=== PATIENT | female | born 1985 | race Caucasian/White ===

== ENCOUNTER 2016-10-11 17:05 | Emergency (ER) | payer OTHER ==
[~2016-10-11] VITALS: Ht 149.9 cm; Wt 64.4 kg
[~2016-10-11 17:05] MED LIST: DIAZEPAM2 M1 PO; MOTRIN800 MG PO; NEURONTIN300 MG PO; OXCARBAZEPINE300 MG PO; SPRINTEC 28 DA1 EACH PO; STRATTERA10 MG PO; STRATTERA25 MG PO; TOPIRAMATE15 MG PO; TOPIRAMATE25 MG PO; TOPIRAMATE50 MG PO; TRAZODONE HCL50 MG PO; VALIUM2 M1 PO; VENLAFAXINE HYD75 M1 PO; ZOFRAN ODT4 MG PO
[2016-10-11] MEDS ORDERED: PANTOPRAZOLE SO40 M1 PO (19:01)
--- NOTE | 2016-10-11 19:28 | ED GI/GU/ABDOMINAL COMPLAINT ---
History of Present Illness General Chief Complaint: Female Urogenital Problems Stated Complaint: RACKET BALL STUCK UP VAGINA Source: patient Exam Limitations: no limitations Vital Signs & Intake/Output Vital Signs & Intake/Output Vital Signs Date Time Temp Pulse Resp B/P B/P Pulse O2 O2 Flow FiO2 Mean Ox Delivery Rate 10/11 2014 98.1 95 16 108/63 98 10/11 1719 98.5 102 15 110/75 96 Room Air Room Air ED Intake and Output 10/12 0000 10/11 1200 Intake Total Output Total Balance Patient 142 lb Weight Weight Reported by Patient Measurement Method Allergies Coded Allergies: chlorpromazine (From THORAZINE) (jumped out window 10/11/16) diphenhydramine (From BENADRYL ALLERGY) (ADDICTION 10/11/16) lorazepam (ITS CALLED ADDICITION 10/11/16) Reconcile Medications Norgestimate-Ethinyl Estradiol (Sprintec 28 Day Tablet) 0.25 MG-35 MCG TABLET 1 TAB PO DAILY BC (Reported) Pantoprazole Sodium 40 MG TABLET.DR 1 TAB PO DAILY GERD (Reported) Triage Note: PT REPORTS SHE HAS A RACKET BALL STUCK IN HER VAGINA. DENIES BLEEDING OR DISCHARGE. REPORTS PELVIC PAIN. 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 ALSO REPORTS ITCHINESS AND BURNING. Triage Nurses Notes Reviewed? yes ? n Is pt currently ? No HPI: Ms. Colon is a 31 yo f w/ PMH of depression and genital herpes presenting to the emergency department for vaginal pain. Patient states she was having consensual sex with her boyfriend when they decided to use a rubber ball and inserted within her vagina. She states this was consensual and not intended to be harmful. Ball got lodged within the vagina and they were unable to remove it. Patient states is been there for approximately 2 hours. Patient denies any dysuria, increased urinary frequency, vaginal discharge, fevers, chills, bowel pain, nausea vomiting or diarrhea. (HÉCTOR PACKER,VIVIAN) Past History Travel History Traveled to [place] past 21 day No Medical History Any Pertinent Medical History? 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 No (VIVIAN ANAYA MD) Review of Systems Review of Systems Constitutional: Reports: see HPI. Comments Review of systems: See HPI. All other systems negative. Constitutional: No chills, fever or weight loss HEENT: No visual changes, no sore throat, no congestion Cardiovascular: No chest pain, palpitations, orthopnea or ankle swelling Skin: no jaundice, no rashes Respiratory: No dyspnea, cough, sputum or hemoptysis GI: No nausea, vomiting or abdominal pain. No diarrhea. : No dysuria No hematuria Musculoskeletal: no back pain, no neck pain Neurologic: No numbness no confusion Psych: No anxiety or depression,. Heme/endocrine: No bruising, no bleeding, no polyuria or polydipsia Immunology: No splenectomy or history of AIDS (VIVIAN ANAYA MD) Physical Exam Physical Exam General Appearance: well developed/nourished, no apparent distress, alert, awake , comfortable Head: atraumatic, normal appearance Eyes: Bilateral: normal appearance, PERRL, EOMI, normal inspection. Ears, Nose, Throat, Mouth: hearing grossly normal Neck: normal inspection, supple, full range of motion Respiratory: normal breath sounds, no respiratory distress Cardiovascular: regular rate/rhythm Gastrointestinal: normal bowel sounds, soft, non-tender Rectal: deferred Pelvic: approximately 5-6 cm blue-green rubber ball seen within the vaginal canal Back: normal inspection, normal range of motion Extremities: normal range of motion Neurologic/Psych: no motor/sensory deficits, awake, alert, oriented x 3 Skin: intact, normal color, warm/dry Core Measures ACS in differential dx? No Severe Sepsis Present: No Septic Shock Present: No (VIVIAN ANAYA MD) Progress Differential Diagnosis: UTI/pyelo, vaginal foreign body, PID Plan of Care: Patient is generally well-appearing. Presenting to the ED today for vaginal foreign body. Foreign body is only been present for approximately 2 hours. No fever or chills. No vaginal discharge. No pain to report. I did to remove the ball from the vagina on both manually as well as with a speculum and sponge wynne to attempt to extract. This was unsuccessful. Called EXHAUST MACHINE OPERATOR on-call, which was Dr. Lindsay. I was unaware at the time that the patient sees Dr. Collazo for EXHAUST MACHINE OPERATOR. Dr. Bergman was nearby and was able to come by and perform a manual exam. She was able to disassemble the metallic speculum and use the superior portion of the speculum as a lever to extract the ball out of vagina. She states that the ball placement was consensual and she feels safe at home. She would like to be discharged at this point in time. Initial ED EKG: none (HÉCTOR PACKER,VIVIAN) Departure Departure Time of Disposition: 2010 Disposition: HOME OR SELF CARE Condition: Stable Clinical Impression Primary Impression: Vaginal foreign body Qualifiers: Encounter type: initial encounter Qualified Code: T19.2XXA - Foreign body in vulva and vagina, initial encounter Referrals: JAZMINE WHITMORE (PCP/Family) Additional Instructions: Please be careful when you place things within the vagina. They can get dislodged and require manipulation or even surgery to be removed. If you have any other issues, please return to the emergency department for further evaluation. Departure Forms: Customer Survey General Discharge Information (VIVIAN ANAYA MD) Resident Co-Sign Statement Statement: ED Attending supervision documentation- [X] I saw and evaluated the patient. I have also reviewed all the pertinent lab results and diagnostic results. I agree with the findings and the plan of care as documented in the Resident's documentation. [X] I have reviewed the ED Record and agree with the Resident's documentation. [] Additions or exceptions (if any) to the Resident's note and plan are summarized below: [] (JAG PACKER,VERONIQUE Bolton)
[2016-10-11 20:15] VITALS: BP 108/63
--- NOTE | 2016-10-11 20:15 | Cons- OBGYN ---
General Information and HPI Consulting Request Date of Consult: 10/11/16 Requested By: DR BRODY Reason for Consult: ASSIST IN REMOVAL OF A FOREIGN BODY IN THE VAGINA Source of Information: patient Exam Limitations: no limitations History of Present Illness: Ms. Colon is a 31 yo f w/ PMH of depression and genital herpes presenting to the emergency department for vaginal pain. Patient states she was having consensual sex with her boyfriend when they decided to use a rubber ball and inserted within her vagina. She states this was consensual and not intended to be harmful. Ball got lodged within the vagina and they were unable to remove it. Patient states is been there for approximately 2 hours. Patient denies any dysuria, increased urinary frequency, vaginal discharge, fevers, chills, bowel pain, nausea vomiting Allergies/Medications Allergies: Coded Allergies: chlorpromazine (From THORAZINE) (jumped out window 10/11/16) diphenhydramine (From BENADRYL ALLERGY) (ADDICTION 10/11/16) lorazepam (ITS CALLED ADDICITION 10/11/16) Home Med List: Norgestimate-Ethinyl Estradiol (Sprintec 28 Day Tablet) 0.25 MG-35 MCG TABLET 1 TAB PO DAILY BC (Reported) Pantoprazole Sodium 40 MG TABLET.DR 1 TAB PO DAILY GERD (Reported) Current Medications: Norgestimate-Ethinyl Estradiol (Sprintec 28 Day Tablet) 0.25 MG-35 MCG TABLET 1 TAB PO DAILY BC (Reported) Pantoprazole Sodium 40 MG TABLET.DR 1 TAB PO DAILY GERD (Reported) Past History Medical History Neurological: NONE ( ) EENT: NONE Cardiovascular: NONE Respiratory: NONE Gastrointestinal: NONE Hepatic: NONE Renal: NONE Musculoskeletal: NONE Psychiatric: depression, PSYCHIATRIC ILLNESS Endocrine: NONE Blood Disorders: NONE Cancer(s): 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 Surgical History Pertinent Surgical History: HERNIA REPAIR Family History Relations & Conditions If Any: Relation not specified for: *No pertinent family history Psychosocial History ETOH Use: occasional use Illicit Drug Use: denies illicit drug use Review of Systems Review of Systems: CURRENTLY NEGATIVE FOR CARDIAC PULMONARY GI COMPLAINTS Exam & Diagnostic Data Vital Signs and I&O Vital Signs Date Time Temp Pulse Resp B/P B/P Pulse O2 O2 Flow FiO2 Mean Ox Delivery Rate 10/11 2014 98.1 95 16 108/63 98 10/11 1719 98.5 102 15 110/75 96 Room Air Room Air Physical Exam General Appearance: well developed/nourished, no apparent distress, alert, awake Gastrointestinal: normal bowel sounds, soft, non-tender, no organomegaly Neurologic/Psych: awake, alert, oriented x 3, normal gait, normal mood/affect Skin: intact, normal color, warm/dry Reproductive: EXTERNAL GENITALIA WNL NL VULVA, NL LABIA MINORA AND MAJORA, NL URETHRA VAGINAL: DIGITAL EXAM SHOWES RETAINED FIRM RUBBER BALL IN UPPER VAGINA. CXX AND UTERUS UNABLE TO BE EXAMINED DUE TO THE PRESENCE OF THE RETAINED FOREIGN BODY Assessment/Plan Assessment/Plan 31 YO WOMAN PRESENTED TO THE ER W/ A FIRM RUBBER BALL "STUCK" IN HER VAGINA. IT WAS THE RESULT OF CONSENSUAL SEXUAL EXPERIMENTATION. PT TRIED ON HER OWN TO REMOVE THE BALL- BUT WAS UNSUCCESSFUL PT PRESENTED TO THE ER, DR BRODY TRIED SEVERAL TECHNIQUES TO REMOVE THE HARD RUBBER BALL (MABNUAL GRASPING, USE OF A TENACULUM, AND USE OF A PLASTIC DISPOSABLE SPECULUM TO GRASP THE BALL IN THE UPPER VAGINA- BUT WAS IMPEDED BY THE INTROITAL MUSCLE. I WAS CALLED TO SEE THIS PATIENT DURING MY INITIAL INTERVIEW- PT REPEATED THAT PLACEMENT OF THE RUBBER BALL IN HER VAGINA WAS CONSENSUAL. I ASKED IF SHE WAS UP TO DATE WITH HR RATE INSERTER CARE. SHE STATED THAT SHE HAD JUST SEEN HER OWN RATE INSERTER EARLIER TODAY FOR A PAP AND GENERAL CHECK UP. I ASKED WHO HER USUAL RATE INSERTER WAS, SHE REPLIED THAT SHE SEES DR PACE. (OB /RATE INSERTER ON STAFF HERE) I TOLD THE PATIENT THAT SINCE I WAS HERE, I WAS CERTAINLY WILLING TO TRY TO REMOVE THE BALL FROM HER VAGINA, BUT IF WE WERE UNSUCCESSFUL HERE IN THE ER, AND HAD TO GO TO THE OR HER BETTER RELAXATION OF THE PERINEAL MM WITH IV SEDATION, THEN I WOULD HAVE TO CALL IN DR PACE TO TAKE CARE OF HER. PT AGREED TO ME TRYING IN THE ER TO DISLODGE THE RETAINED FOREIGN BODY. PT WAS SEATED ON THE RATE INSERTER EXAM TABLE, AND THEN POSITIONED IN DORSAL LITHOTOMY POSITION W/ STIRRUPS. DIGITAL EXAM SHOWED THE HARD RUBBER BALL IN THE UPPER VAGINA VAULT. ATTEMPS @ DIGITAL REMOVAL NOT SUCCESSFUL DUE TO THE ADDED DIAMETER OF MY FINGERS PLUS THE 6.5 CM DIAMETER BALL, NOT GETTING PAST HER INTROITUS. ADEQUATE LUBRICATION WAS UTILIZED, NO SUCTION EFFECT NOTED WITH THE VAGINAL MUCOSA. I DISARTICULAED A CARLA SPECULUM AND USED THE LOWER BLADE SOLO. I GUIDED THE BLADE (CONVEX SIDE DOWN) ALONG THE ANTERIOR VAGINAL WALL TO JUST PAST THE HARD RUBBER BALL. WITH DOWNWARD PRESSURE, SLOWLY SWEEPING THE END OF THE SPECULUM BLADE, JUST BEHIND THE RETAINED RUBBER BALL, TOWARDS THE INTROITUS- I SLOWLY AND CAREFULLY BROUGHT THE BALL PAST HER INTROITUS- SUCCESSFULLY REMOVING THE FOREIGN BODY FROM THE VAGINA. PT TOLERATED THIS PROCEDURE QUITE WELL. VAGINAL WALL INSPECTED AND THERE WERE NO ABRASIONS OR LACERATIONS NOTED. sMOOTH BLUE HARD RUBBER BALL @ 6.5 TO 7 CM DIAMETER. PT DECLINED TO TAKE THE BALL BACK HOME. THE BALL WAS DISCARDED IN THE TRASH CAN IN THE ED. PT WAS QUITE RELIEVED THAT THE WHOLE ORDEAL WAS OVER. PT WAS DISCHARGED HOME. ADVISED TO CALL FOR SEVERE PAIN, HEAVY BLEEDING, OF TEMPERATURE > 100.5 NICOLE SHOOK MD Problem List: 1. Vaginal foreign body 2. Hx of retained foreign body fully removed Consult Acknowledgment - Thank you for your consult request.
--- NOTE | 2016-10-11 20:31 | Procedure ---
Minor Surgical Procedure Note Date of Procedure: 10/11/16 Procedure Note: RETAINED 6.5 CM HARD RUBBER BALL IN THE VAGINAL VAULT DURING MY INITIAL INTERVIEW- PT REPEATED THAT PLACEMENT OF THE RUBBER BALL IN HER VAGINA WAS CONSENSUAL. I ASKED IF SHE WAS UP TO DATE WITH HR CAP SEWER CARE. SHE STATED THAT SHE HAD JUST SEEN HER OWN CAP SEWER EARLIER TODAY FOR A PAP AND GENERAL CHECK UP. I ASKED WHO HER USUAL CAP SEWER WAS, SHE REPLIED THAT SHE SEES DR PACE. (OB /CAP SEWER ON STAFF HERE) I TOLD THE PATIENT THAT SINCE I WAS HERE, I WAS CERTAINLY WILLING TO TRY TO REMOVE THE BALL FROM HER VAGINA, BUT IF WE WERE UNSUCCESSFUL HERE IN THE ER, AND HAD TO GO TO THE OR HER BETTER RELAXATION OF THE PERINEAL MM WITH IV SEDATION, THEN I WOULD HAVE TO CALL IN DR PACE TO TAKE CARE OF HER. PT AGREED TO ME TRYING IN THE ER TO DISLODGE THE RETAINED FOREIGN BODY. DISCUSSED MY OPTIONS FOR TRYING TO REMOVE THE RETAINED FOREIGN BODY FROM HER VAGINA. PT UNDERSTOOD AND CONSENTED TO THE AYYEPMT AT REMOVAL OF THE RETAINED FOREIGN BODY FROM HER VAGINA PT WAS SEATED ON THE CAP SEWER EXAM TABLE, AND THEN POSITIONED IN DORSAL LITHOTOMY POSITION W/ STIRRUPS. DIGITAL EXAM SHOWED THE HARD RUBBER BALL IN THE UPPER VAGINA VAULT. ATTEMPS @ DIGITAL REMOVAL NOT SUCCESSFUL DUE TO THE ADDED DIAMETER OF MY FINGERS PLUS THE 6.5 CM DIAMETER BALL, NOT GETTING PAST HER INTROITUS. ADEQUATE LUBRICATION WAS UTILIZED, NO SUCTION EFFECT NOTED WITH THE VAGINAL MUCOSA. I DISARTICULAED A CARLA SPECULUM AND USED THE LOWER BLADE SOLO. I GUIDED THE BLADE (CONVEX SIDE DOWN) ALONG THE ANTERIOR VAGINAL WALL TO JUST PAST THE HARD RUBBER BALL. WITH DOWNWARD PRESSURE, SLOWLY SWEEPING THE END OF THE SPECULUM BLADE, JUST BEHIND THE RETAINED RUBBER BALL, TOWARDS THE INTROITUS- I SLOWLY AND CAREFULLY BROUGHT THE BALL PAST HER INTROITUS- SUCCESSFULLY REMOVING THE FOREIGN BODY FROM THE VAGINA. PT TOLERATED THIS PROCEDURE QUITE WELL. VAGINAL WALL INSPECTED AND THERE WERE NO ABRASIONS OR LACERATIONS NOTED. sMOOTH BLUE HARD RUBBER BALL @ 6.5 TO 7 CM DIAMETER. PT DECLINED TO TAKE THE BALL BACK HOME. THE BALL WAS DISCARDED IN THE TRASH CAN IN THE ED. PT WAS QUITE RELIEVED THAT THE WHOLE ORDEAL WAS OVER. Vinita SHOOK MD
== END 2016-10-11 20:16 ==
LOC: ERH 17:05
DX: T19.2XXA Foreign body in vulva and vagina, initial encounter (principal)

== ENCOUNTER 2016-11-19 02:46 | Emergency (ER) | payer OTHER ==
[~2016-11-19] VITALS: Ht 149.9 cm; Wt 64.4 kg
[~2016-11-19 02:46] MED LIST changes: +PANTOPRAZOLE SO40 M1 PO
[2016-11-19 02:53] VITALS: BP 111/78
--- NOTE | 2016-11-19 03:29 | ED INFLUENZA/URI COMPLAINT ---
History of Present Illness General Chief Complaint: General Adult Stated Complaint: BIBA, SOB Source: patient Exam Limitations: no limitations Vital Signs & Intake/Output Vital Signs & Intake/Output Vital Signs Date Time Temp Pulse Resp B/P B/P Pulse O2 O2 Flow FiO2 Mean Ox Delivery Rate 11/19 0256 Room Air 11/19 0253 99.2 84 18 111/78 97 Room Air Allergies Coded Allergies: chlorpromazine (From THORAZINE) (jumped out window 10/11/16) diphenhydramine (From BENADRYL ALLERGY) (ADDICTION 10/11/16) lorazepam (ITS CALLED ADDICITION 10/11/16) Reconcile Medications Norgestimate-Ethinyl Estradiol (Sprintec 28 Day Tablet) 0.25 MG-35 MCG TABLET 1 TAB PO DAILY BC (Reported) Pantoprazole Sodium 40 MG TABLET.DR 1 TAB PO DAILY GERD (Reported) Triage Note: PT DAYANA FROM HOME C/O SORE THROAT THAT WOKE HER OUT OF HER SLEEP. ALSO STATES SOME SOB D/T SORE THROAT. LUNGS CLEAR. Triage Nurses Notes Reviewed? yes : No Patient currently breastfeeds: No HPI: Patient presents for evaluation of a sore throat fever headache back pain sneezing and nonproductive cough that began abruptly 6:30 AM on Friday. Patient states that since then her sore throat has gotten worse. While asleep earlier this evening she states she awoke and was unable to breathe because "her throat got cut off". She denies any associated rash, vomiting or unusual diarrhea ( patient has IBS and has diarrhea frequently). No known ill contacts or recent travel. Her voice is also beginning to get hoarse. Past History Travel History Traveled to [place] past 21 day No Medical History Any Pertinent Medical History? 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 No Review of Systems Review of Systems Constitutional: Reports: no symptoms. EENTM: Reports: see HPI. Respiratory: Reports: no symptoms. Cardiovascular: Reports: no symptoms. GI: Reports: no symptoms. Genitourinary: Reports: no symptoms. Musculoskeletal: Reports: see HPI. Skin: Reports: no symptoms. Neurological/Psychological: Reports: headache. Hematologic/Endocrine: Reports: no symptoms. Immunologic/Allergic: Reports: no symptoms. All Other Systems: Reviewed and Negative Physical Exam Physical Exam Ears, Nose, Throat: SEE BELOW Comments: Gen.: Well-nourished, well-developed, no acute respiratory distress. Head: Normocephalic, atraumatic. Eyes: Normal inspection bilaterally Ears: Normal inspection bilaterally Nose: Normal inspectioN Face: Mild tenderness to percussion over the maxillary and frontal sinuses Throat/mouth : Moist mucosa, no erythema Neck: Supple, full range of motion, no goiter Heart: Regular rate and rhythm, no murmurs rubs or gallops Lungs: Clear to auscultation bilaterally with normal air entry Chest: Nontender Back: Normal range of motion Abdomen: Soft, nontender, nondistended, normal bowel sounds Extremities: Normal range of motion grossly, equal radial pulses, no cyanosis clubbing or edema Neurologic: Cranial nerves grossly intact, speech is clear Skin: warm and dry Psychiatric: Calm, cooperative, no apparent delusions or hallucinations Lymphatic: No cervical lymphadenopathy Core Measures Severe Sepsis Present: No Septic Shock Present: No Progress Differential Diagnosis: influenza, pneumonia, pharyngitis, sinusitis, VIRAL SYNDROME Plan of Care: Symptomatic care Initial ED EKG: none Departure Departure Disposition: HOME OR SELF CARE Condition: Stable Clinical Impression Primary Impression: Viral syndrome Referrals: JAZMINE WHITMORE (PCP/Family) Additional Instructions: Maintain a good fluid intake. Bromfed-DM as prescribed for cough or cold symptoms. Diclofenac as needed for pain. Follow-up with your primary care doctor in one week if not improving. Return if any concerns or sudden worsening. Thank you for choosing the [facility] Emergency Department for your care. It was a pleasure to serve you today. Armin Wilcox M.D. [facility] Departure Forms: Customer Survey General Discharge Information
[2016-11-19] MEDS ORDERED: BROMFED DM COU118 M1 PO (03:34)
[2016-11-19] MEDS ORDERED: DICLOFENAC SODI75 M2 PO (03:34)
== END 2016-11-19 03:39 ==
LOC: ERH 02:46
DX: B34.9 Viral infection, unspecified (principal); R51 Headache

== ENCOUNTER 2017-08-22 20:14 | Emergency (ER) | payer OTHER ==
[~2017-08-22 20:14] MED LIST changes: +BROMFED DM COU118 M1 PO; +DICLOFENAC SODI75 M2 PO
== END 2017-08-22 21:11 | disposition admitted as inpatient to this hospital (09) ==
LOC: ERH 20:14
DX: H57.10 Ocular pain, unspecified eye (principal)